=== PATIENT | female | born 1985 | race Caucasian/White ===

== ENCOUNTER 2023-12-30 17:32 | Emergency (ER) | payer MEDICAID, OTHER ==
[~2023-12-30] VITALS: Ht 162.6 cm; Wt 61.4 kg
[2023-12-30 17:55] VITALS: TEMP 98.7
[2023-12-30 18:50] VITALS: BP 145/88; PULSE 94; RESP 15; O2SAT 97
== END 2023-12-30 19:05 ==
LOC: ER 17:33
DX: S60.455A Superficial foreign body of left ring finger, initial encounter (principal); M79.645 Pain in left finger(s); M79.89 Other specified soft tissue disorders; V89.2XXA Person injured in unspecified motor-vehicle accident, traffic, initial encounter; Y93.89 Activity, other specified; Y92.89 Other specified places as the place of occurrence of the external cause; Y99.8 Other external cause status
CPT/HCPCS: 99284